=== PATIENT | female | born 2005 | race Caucasian/White ===

== ENCOUNTER 2025-06-17 16:58 | Emergency (ER) | payer SELFPAY ==
[~2025-06-17] VITALS: Ht 165.1 cm; Wt 107.0 kg
[2025-06-17 17:12] VITALS: O2SAT 99
[2025-06-17] MEDS ORDERED: DIPHENHYDRAMINE 50MG CAPSULE PO ONE (18:45)
[2025-06-17] MEDS: DIPHENHYDRAMINE 25MG CAPSULE PO SCH (19:10)
[2025-06-17] MEDS: DEXAMETHASONE 10 MG/ML VIAL IM ONE (19:11)
[2025-06-17] MEDS: FAMOTIDINE 20MG TABLET PO ONE (19:11)
[2025-06-17] MEDS: IBUPROFEN 600MG TABLET PO ONE (19:22)
[2025-06-17] MEDS ORDERED: P50 MT (20:23)
[2025-06-17] MEDS ORDERED: EPIN0.3P3 IM (20:23)
[2025-06-17] MEDS ORDERED: CYCL10TA21 MT (20:23)
[2025-06-17] MEDS ORDERED: IBUP-1455 MT (20:23)
[2025-06-17] MEDS ORDERED: DIPH25CA83 MT (20:23)
[2025-06-17 20:50] VITALS: BP 118/77; PULSE 69; RESP 20; TEMP 36.8; O2SAT 99
== END 2025-06-17 20:56 | disposition home or self-care (01) ==
LOC: ER 16:58
DX: S16.1XXA Strain of muscle, fascia and tendon at neck level, initial encounter (principal); T78.3XXA Angioneurotic edema, initial encounter; Z88.6 Allergy status to analgesic agent; X58.XXXA Exposure to other specified factors, initial encounter; Y93.89 Activity, other specified; Y92.89 Other specified places as the place of occurrence of the external cause; Y99.8 Other external cause status
CPT/HCPCS: 99284; 96372; Q0163; J1100